=== PATIENT | female | born 1945 | race African-American/Black ===

== ENCOUNTER 2016-09-08 03:34 | Inpatient (IN) | payer MEDICARE ==
[~2016-09-08] VITALS: Ht 165.1 cm; Wt 66.7 kg
[2016-09-08] VITALS (10 sets, daily range): BP systolic 132–158; BP diastolic 80–93
[2016-09-08] MEDS ORDERED: ASPIRIN 81MG TABLET PO STA (03:39)
[2016-09-08 04:17] LABS: BASOPHILS % 0.3 % (0.0-2.0); EOSINOPHILS % 2.8 % (0.0-5.0); HEMATOCRIT. 39.5 % (36.0-48.0); HEMOGLOBIN. 13.1 g/dL (12.0-16.0); MEAN CORPUSCULAR HEMOGLOBIN 27.7 pg (28.0-32.0); MEAN CORPUSCULAR VOLUME 83.9 fL (81.0-99.0); MEAN PLATELET VOLUME 8.1 fl (7.4-10.4); NEUTROPHILS % 66.9 % (40.0-76.0); PLATELET 182 x1000/uL (130-400); RED BLOOD CELL COUNT 4.71 mill/uL (4.2-5.4); RED CELL DISTRIBUTION WIDTH 16.1 % (11.6-14.6)
[2016-09-08 04:25] LABS: D-DIMER 2.01 mg/L FEU (<0.50); INR 1.4; PARTIAL THROMBOPLASTIN TIME 39.8 sec (24.0-34.0)
[2016-09-08 04:31] LABS: CARBON DIOXIDE 24 mEq/L (21-32); CHLORIDE 105 mEq/L (98-107); CREATINE KINASE 54 IU/L (26-192); TROPONIN I 0.05 ng/mL (0.00-0.04)
[2016-09-08 04:34] LABS: BG BASE EXCESS -3.3 mmol/L (-2.0-2.0); BG BILEVEL POS AIRWAY PRESSURE 18/5; BG CARBOXYHEMOGLOBIN 0.9 % (0.5-1.5); BG DEOXYHEMOGLOBIN 0.2 % (0.0-5.0); BG FRACTION INSPIRED OXYGEN 100; BG HCO3 ACT 20.5 mmol/L (22.0-26.0); BG METHEMOGLOBIN 0.4 % (0.0-1.5); BG OXYGEN SATURATION 99.8 % (92.0-98.5); BG OXYHEMOGLOBIN 98.5 % (94.0-97.0); BG PCO2 33.6 mmHg (35.0-45.0); BG PH 7.403 (7.350-7.450); BG PO2 388.1 mmHg (75.0-100.0); BG SAMPLE SITE RIGHT RADIAL; BG TOTAL HEMOGLOBIN 15.9 g/dL (12.0-18.0); BG VENT MODE MASK - BIPAP; BG VENT RATE 18 set
[2016-09-08] MEDS ORDERED: LEVOFLOXACIN 750MG PREMIX 150 ML IV ONE (04:45)
[2016-09-08] MEDS ORDERED: FUROSEMIDE 40MG/4ML VIAL IVP ONE (04:45)
[2016-09-08 06:04] LABS: T4 FREE 1.76 ng/dL (0.76-1.46)
[2016-09-08] MEDS ORDERED: CLONIDINE 0.1MG TABLET PO PRN (09:45)
[2016-09-08] MEDS ORDERED: MAGNESIUM/ALUMINUM HYDROXIDE/SIMETHICONE 30ML UDC PO PRN (09:45)
[2016-09-08] MEDS ORDERED: IPRATROPIUM/ALBUTEROL 0.5-3(2.5)MG/3ML NEB INH PRN (09:45)
[2016-09-08] MEDS ORDERED: ONDANSETRON HCL 4MG/2ML VIAL IV PRN (09:45)
[2016-09-08] MEDS ORDERED: NA PHOS,M-B/NA PHOS,DI-BA ENEMA 118ML PR PRN (09:45)
[2016-09-08] MEDS ORDERED: DIPHENHYDRAMINE 50MG/ML VIAL IV PRN (09:45)
[2016-09-08] MEDS ORDERED: TRAMADOL 50MG TABLET PO PRN (09:45)
[2016-09-08] MEDS ORDERED: AMLODIPINE 10MG TABLET PO SCH (09:45)
[2016-09-08] MEDS ORDERED: GUAIFENESIN 200MG/10ML SUGAR FREE UDC PO PRN (09:45)
[2016-09-08] MEDS ORDERED: ASPIRIN 81MG TABLET PO NR (10:15)
[2016-09-08 10:16] LABS: *AMPHETAMINES SCREEN URINE NEGATIVE (NEGATIVE); *BARBITURATES SCREEN URINE NEGATIVE (NEGATIVE); *BENZODIAZEPINES SCREEN URINE PRESUMTIVE POSITIVE (NEGATIVE); *COCAINE SCREEN URINE NEGATIVE (NEGATIVE); CANNABINOID URINE SCREEN NEGATIVE (NEGATIVE); METHADONE URINE SCREEN NEGATIVE (NEGATIVE); OPIATES URINE SCREEN NEGATIVE (NEGATIVE); PHENCYCLIDINE URINE SCREEN NEGATIVE (NEGATIVE)
[2016-09-08] MEDS: PANTOPRAZOLE SODIUM 40 MG/VIAL IV SCH (10:24)
[2016-09-08] MEDS: ENOXAPARIN 30MG/0.3ML SYR SUBCUT SCH (10:24)
[2016-09-08] MEDS: LORAZEPAM 2MG/ML CPJ IV PRN (10:24)
[2016-09-08] MEDS: ASPIRIN 325MG EC TABLET PO SCH (10:24)
[2016-09-08] MEDS: FOLIC ACID/VITAMIN B COMP W-C TABLET PO SCH (10:25)
[2016-09-08] MEDS: AMLODIPINE 5MG TABLET PO SCH (10:30)
[2016-09-08] MEDS: ANASTROZOLE 1 MG TABLET PO SCH (10:30)
[2016-09-08] MEDS: SEVELAMER CARBONATE 800 MG TABLET PO SCH ×2 (12:32→17:04)
[2016-09-08] MEDS ORDERED: HEPARIN 100 UNITS/1 ML VIAL IVF PRN (15:00)
[2016-09-08] MEDS ORDERED: HEPARIN SODIUM 1,000 UNIT/1ML VIAL IV PRN ×2 (15:30→16:08)
[2016-09-08 15:54] LABS: CREATINE KINASE MB FRACTION 2.5 ng/mL (0.5-3.6); TROPONIN I 0.26 ng/mL (0.00-0.04)
[2016-09-08] MEDS: METHIMAZOLE 5MG TABLET PO SCH (16:00)
[2016-09-08] MEDS ORDERED: HEPARIN SODIUM 1,000 UNIT/1ML VIAL IV NR ×2 (16:30→17:30)
[2016-09-08] MEDS: ALPRAZOLAM 0.5 MG TABLET PO SCH (17:04)
[2016-09-08] MEDS ORDERED: ZOLPIDEM TARTRATE 5MG TABLET PO PRN (21:00)
[2016-09-08] MEDS ORDERED: METOPROLOL TARTRATE 25MG TABLET PO SCH (21:00)
[2016-09-08] MEDS: CARVEDILOL 3.125 MG TABLET PO SCH (21:25)
[2016-09-08] MEDS: HYDRALAZINE HCL 50MG TABLET PO SCH (21:26)
[2016-09-08 23:53] LABS: CREATINE KINASE MB FRACTION 1.8 ng/mL (0.5-3.6); TROPONIN I 0.2 ng/mL (0.00-0.04)
[2016-09-09] VITALS (32 sets, daily range): BP systolic 106–154; BP diastolic 40–105
[2016-09-09] MEDS: IPRATROPIUM/ALBUTEROL 0.5-3(2.5)MG/3ML NEB HHN SCH ×6 (00:42→21:39)
[2016-09-09] MEDS: LORAZEPAM 2MG/ML CPJ IV PRN (02:00)
[2016-09-09] MEDS: METHIMAZOLE 5MG TABLET PO SCH (08:35)
[2016-09-09] MEDS: FOLIC ACID/VITAMIN B COMP W-C TABLET PO SCH (08:35)
[2016-09-09] MEDS: SEVELAMER CARBONATE 800 MG TABLET PO SCH ×3 (08:35→18:07)
[2016-09-09] MEDS: PANTOPRAZOLE SODIUM 40 MG/VIAL IV SCH (08:35)
[2016-09-09] MEDS: ISOSORBIDE MONONITRATE 30MG TABLET SR 24HR PO SCH (08:36)
[2016-09-09] MEDS: HYDRALAZINE HCL 50MG TABLET PO SCH ×2 (08:36→22:14)
[2016-09-09] MEDS: AMLODIPINE 5MG TABLET PO SCH (08:36)
[2016-09-09] MEDS: ALPRAZOLAM 0.5 MG TABLET PO SCH ×2 (08:36→18:07)
[2016-09-09] MEDS: ASPIRIN 325MG EC TABLET PO SCH (08:39)
[2016-09-09] MEDS: CARVEDILOL 3.125 MG TABLET PO SCH ×2 (08:39→22:14)
[2016-09-09] MEDS: ENOXAPARIN 30MG/0.3ML SYR SUBCUT SCH (11:21)
[2016-09-09] MEDS: ANASTROZOLE 1 MG TABLET PO SCH (16:38)
[2016-09-09] MEDS: DOCUSATE SODIUM 100MG CAPSULE PO PRN (22:14)
[2016-09-10] VITALS (11 sets, daily range): BP systolic 107–180; BP diastolic 58–96
[2016-09-10] MEDS: IPRATROPIUM/ALBUTEROL 0.5-3(2.5)MG/3ML NEB HHN SCH ×5 (00:21→20:04)
[2016-09-10] MEDS: LORAZEPAM 2MG/ML CPJ IV PRN (00:41)
[2016-09-10] MEDS ORDERED: LEVOFLOXACIN 250MG PREMIX 50 ML IV SCH (05:00)
[2016-09-10] MEDS: ASPIRIN 325MG EC TABLET PO SCH (08:39)
[2016-09-10] MEDS: ANASTROZOLE 1 MG TABLET PO SCH (08:39)
[2016-09-10] MEDS: METHIMAZOLE 5MG TABLET PO SCH (08:39)
[2016-09-10] MEDS: FOLIC ACID/VITAMIN B COMP W-C TABLET PO SCH (08:39)
[2016-09-10] MEDS: SEVELAMER CARBONATE 800 MG TABLET PO SCH ×3 (08:41→18:03)
[2016-09-10] MEDS: FAMOTIDINE 20MG/2ML VIAL IV SCH (08:41)
[2016-09-10] MEDS: ALPRAZOLAM 0.5 MG TABLET PO SCH ×2 (08:42→18:43)
[2016-09-10] MEDS: DOCUSATE SODIUM 100MG CAPSULE PO PRN ×2 (08:45→21:35)
[2016-09-10] MEDS: CARVEDILOL 3.125 MG TABLET PO SCH ×2 (08:46→21:28)
[2016-09-10] MEDS: HYDRALAZINE HCL 50MG TABLET PO SCH ×2 (08:48→21:27)
[2016-09-10] MEDS: ISOSORBIDE MONONITRATE 30MG TABLET SR 24HR PO SCH (08:51)
[2016-09-10] MEDS: AMLODIPINE 5MG TABLET PO SCH (08:52)
[2016-09-10] MEDS ORDERED: LORAZEPAM 2MG/ML CPJ IV PRN (09:45)
[2016-09-10] MEDS: ENOXAPARIN 30MG/0.3ML SYR SUBCUT SCH (10:00)
[2016-09-10 10:01] LABS: BASOPHILS % 0.3 % (0.0-2.0); EOSINOPHILS % 5.3 % (0.0-5.0); HEMATOCRIT. 35.8 % (36.0-48.0); HEMOGLOBIN. 11.9 g/dL (12.0-16.0); LYMPHOCYTES % 19.8 % (20.0-50.0); MEAN PLATELET VOLUME 8.3 fl (7.4-10.4); MONOCYTES % 8.1 % (2.0-8.0); NEUTROPHILS % 66.5 % (40.0-76.0); PLATELET 166 x1000/uL (130-400); RED BLOOD CELL COUNT 4.26 mill/uL (4.2-5.4); RED CELL DISTRIBUTION WIDTH 16.2 % (11.6-14.6)
[2016-09-10 10:18] LABS: PHOSPHORUS 4.8 mg/dL (2.5-4.9)
[2016-09-10 10:45] LABS: BG BASE EXCESS -5.3 mmol/L (-2.0-2.0); BG CARBOXYHEMOGLOBIN 0.1 % (0.5-1.5); BG DEOXYHEMOGLOBIN 5.5 % (0.0-5.0); BG FRACTION INSPIRED OXYGEN 21; BG HCO3 ACT 18.4 mmol/L (22.0-26.0); BG METHEMOGLOBIN 0.3 % (0.0-1.5); BG OXYGEN SATURATION 94.5 % (92.0-98.5); BG OXYHEMOGLOBIN 94.1 % (94.0-97.0); BG PCO2 30.7 mmHg (35.0-45.0); BG PH 7.396 (7.350-7.450); BG PO2 78.3 mmHg (75.0-100.0); BG SAMPLE SITE RIGHT RADIAL; BG TOTAL HEMOGLOBIN 12.6 g/dL (12.0-18.0); BG VENT MODE ROOM AIR
[2016-09-10] MEDS: ACETAMINOPHEN 325MG TABLET PO PRN (12:25)
[2016-09-10] MEDS ORDERED: HEPARIN SODIUM 1,000 UNIT/1ML VIAL IV NR (15:30)
[2016-09-11] VITALS (11 sets, daily range): BP systolic 131–166; BP diastolic 68–100
[2016-09-11] MEDS: IPRATROPIUM/ALBUTEROL 0.5-3(2.5)MG/3ML NEB HHN SCH ×6 (00:07→20:24)
[2016-09-11] MEDS: ACETAMINOPHEN 325MG TABLET PO PRN (00:57)
[2016-09-11] MEDS: ANASTROZOLE 1 MG TABLET PO SCH (10:44)
[2016-09-11] MEDS: DOCUSATE SODIUM 100MG CAPSULE PO PRN (10:45)
[2016-09-11] MEDS: SEVELAMER CARBONATE 800 MG TABLET PO SCH ×3 (10:45→19:03)
[2016-09-11] MEDS: HYDRALAZINE HCL 50MG TABLET PO SCH ×2 (10:45→21:15)
[2016-09-11] MEDS: METHIMAZOLE 5MG TABLET PO SCH (10:46)
[2016-09-11] MEDS: ALPRAZOLAM 0.5 MG TABLET PO SCH ×2 (10:46→21:16)
[2016-09-11] MEDS: FOLIC ACID/VITAMIN B COMP W-C TABLET PO SCH (10:46)
[2016-09-11] MEDS: CARVEDILOL 3.125 MG TABLET PO SCH ×2 (10:47→21:16)
[2016-09-11] MEDS: AMLODIPINE 5MG TABLET PO SCH (10:48)
[2016-09-11] MEDS: ISOSORBIDE MONONITRATE 30MG TABLET SR 24HR PO SCH (10:48)
[2016-09-11] MEDS: ASPIRIN 325MG EC TABLET PO SCH (10:48)
[2016-09-11] MEDS: FAMOTIDINE 20MG/2ML VIAL IV SCH (10:49)
[2016-09-11] MEDS: ENOXAPARIN 30MG/0.3ML SYR SUBCUT SCH (10:50)
[2016-09-12] VITALS (13 sets, daily range): BP systolic 120–148; BP diastolic 48–96
[2016-09-12] MEDS: IPRATROPIUM/ALBUTEROL 0.5-3(2.5)MG/3ML NEB HHN SCH ×6 (00:15→21:26)
[2016-09-12] MEDS: ISOSORBIDE MONONITRATE 30MG TABLET SR 24HR PO SCH (08:43)
[2016-09-12] MEDS: CARVEDILOL 3.125 MG TABLET PO SCH ×2 (08:43→20:39)
[2016-09-12] MEDS: HYDRALAZINE HCL 50MG TABLET PO SCH ×2 (08:43→20:39)
[2016-09-12] MEDS: AMLODIPINE 5MG TABLET PO SCH (08:44)
[2016-09-12] MEDS: SEVELAMER CARBONATE 800 MG TABLET PO SCH ×3 (09:35→18:51)
[2016-09-12] MEDS: METHIMAZOLE 5MG TABLET PO SCH (09:36)
[2016-09-12] MEDS: FAMOTIDINE 20MG/2ML VIAL IV SCH (09:36)
[2016-09-12] MEDS: FOLIC ACID/VITAMIN B COMP W-C TABLET PO SCH (09:36)
[2016-09-12] MEDS: ALPRAZOLAM 0.5 MG TABLET PO SCH ×2 (09:36→16:40)
[2016-09-12] MEDS: ASPIRIN 325MG EC TABLET PO SCH (09:36)
[2016-09-12] MEDS: ENOXAPARIN 30MG/0.3ML SYR SUBCUT SCH (09:36)
[2016-09-12] MEDS ORDERED: LEVOFLOXACIN 250MG TABLET PO SCH (11:00)
[2016-09-12] MEDS: ANASTROZOLE 1 MG TABLET PO SCH (12:14)
[2016-09-12] MEDS ORDERED: HEPARIN SODIUM 1,000 UNIT/1ML VIAL IV NR (13:00)
[2016-09-13] VITALS: BP 139/93
[2016-09-13] MEDS: IPRATROPIUM/ALBUTEROL 0.5-3(2.5)MG/3ML NEB HHN SCH ×3 (00:19→09:31)
[2016-09-13 01:30] VITALS: BP 127/83
[2016-09-13 04:00] VITALS: BP 142/78
[2016-09-13 08:00] VITALS: BP 135/84
[2016-09-13] MEDS: FOLIC ACID/VITAMIN B COMP W-C TABLET PO SCH (08:42)
[2016-09-13] MEDS: ASPIRIN 325MG EC TABLET PO SCH (08:43)
[2016-09-13] MEDS: METHIMAZOLE 5MG TABLET PO SCH (08:43)
[2016-09-13] MEDS: ALPRAZOLAM 0.5 MG TABLET PO SCH (08:43)
[2016-09-13] MEDS: AMLODIPINE 5MG TABLET PO SCH (08:43)
[2016-09-13] MEDS: CARVEDILOL 3.125 MG TABLET PO SCH (08:44)
[2016-09-13] MEDS: ISOSORBIDE MONONITRATE 30MG TABLET SR 24HR PO SCH (08:44)
[2016-09-13] MEDS: ANASTROZOLE 1 MG TABLET PO SCH (08:45)
[2016-09-13] MEDS: FAMOTIDINE 20MG/2ML VIAL IV SCH (08:45)
[2016-09-13] MEDS: HYDRALAZINE HCL 50MG TABLET PO SCH (08:45)
[2016-09-13] MEDS: SEVELAMER CARBONATE 800 MG TABLET PO SCH (08:55)
[2016-09-13] MEDS: ENOXAPARIN 30MG/0.3ML SYR SUBCUT SCH (09:00)
[2016-09-13 11:30] VITALS: BP 115/56
[2016-09-13 12:00] VITALS: BP 115/56
== END 2016-09-13 12:38 | disposition home or self-care (01) | DRG 871 ==
LOC: ER 03:34 → EDBD 03:34 → EDBEDREQ 03:52 → 5EST 05:07 → EDBEDREQ 05:10 → EDBEDREQTM 05:10 → ENRESERV 06:12 → 5EST 09-11 06:15 → 7WST 09-13 02:26
PROVIDERS: ADMIT Internal Medicine; ATTEND Internal Medicine
PROC: 5A1D60Z (ICD-10-PCS; principal; 2016-09-08)
PROC: 5A09357 Assistance with Respiratory Ventilation, Less than 24 Consecutive Hours, Continuous Positive Airway Pressure (ICD-10-PCS; 2016-09-08)
DX: A41.9 Sepsis, unspecified organism (principal); N18.6 End stage renal disease; J96.00 Acute respiratory failure, unspecified whether with hypoxia or hypercapnia; J18.1 Lobar pneumonia, unspecified organism; I50.43 Acute on chronic combined systolic (congestive) and diastolic (congestive) heart failure; I13.2 Hypertensive heart and chronic kidney disease with heart failure and with stage 5 chronic kidney disease, or end stage renal disease; J44.0 Chronic obstructive pulmonary disease with (acute) lower respiratory infection; J44.1 Chronic obstructive pulmonary disease with (acute) exacerbation; E05.90 Thyrotoxicosis, unspecified without thyrotoxic crisis or storm; E11.22 Type 2 diabetes mellitus with diabetic chronic kidney disease; I25.10 Atherosclerotic heart disease of native coronary artery without angina pectoris; I25.2 Old myocardial infarction; I27.2 Other secondary pulmonary hypertension; Z79.899 Other long term (current) drug therapy; Z87.891 Personal history of nicotine dependence; Z99.2 Dependence on renal dialysis; G89.29 Other chronic pain; M54.5 Low back pain; M19.90 Unspecified osteoarthritis, unspecified site; Z88.6 Allergy status to analgesic agent; Z88.8 Allergy status to other drugs, medicaments and biological substances; C50.912 Malignant neoplasm of unspecified site of left female breast; R26.9 Unspecified abnormalities of gait and mobility
CPT/HCPCS: 36415; 36600; 71010; 71100; 80048; 80053; 80305; 82375; 82550; 82553; 82805; 82962; 83036; 83605; 83690; 83880; 84100; 84439; 84443; 84481; 84484; 85025; 85379; 85610; 85730; 86300; 87040; 87070; 93005; 93306; 93970; 94640; 94660; 96365; 96375; 97116; 97162; 97166; 97530; 97535; 99291; C9113; J1644; J1650; J1940; J1956; J2060; J3490; J7030; J7040; J7620

== ENCOUNTER 2016-09-29 16:41 | Inpatient (IN) | payer MEDICARE ==
[~2016-09-29] VITALS: Ht 167.6 cm; Wt 69.9 kg
[2016-09-29] MEDS ORDERED: ASPIRIN 81MG TABLET PO ONE (18:45)
[2016-09-29] MEDS ORDERED: NITROGLYCERIN 0.4MG TABLET SL SL PRN ×2 (18:45→20:30)
[2016-09-29 19:33] LABS: BASOPHILS % 0.3 % (0.0-2.0); EOSINOPHILS % 1.2 % (0.0-5.0); HEMATOCRIT. 34.3 % (36.0-48.0); HEMOGLOBIN. 11.5 g/dL (12.0-16.0); LYMPHOCYTES % 14.9 % (20.0-50.0); MEAN CORPUSCULAR HEMOGLOBIN 28.2 pg (28.0-32.0); MEAN CORPUSCULAR VOLUME 84.4 fL (81.0-99.0); MEAN PLATELET VOLUME 8.4 fl (7.4-10.4); MONOCYTES % 9.2 % (2.0-8.0); NEUTROPHILS % 74.4 % (40.0-76.0); PLATELET 229 x1000/uL (130-400); RED BLOOD CELL COUNT 4.06 mill/uL (4.2-5.4); RED CELL DISTRIBUTION WIDTH 16.5 % (11.6-14.6)
[2016-09-29 19:41] LABS: INR 1.4
[2016-09-29 19:49] LABS: CARBON DIOXIDE 23 mEq/L (21-32); CHLORIDE 104 mEq/L (98-107); TROPONIN I 0.03 ng/mL (0.00-0.04)
[2016-09-29] MEDS ORDERED: ALBUTEROL (0.5%) 2.5MG/0.5ML NEB HHN ONE (20:00)
[2016-09-29] MEDS ORDERED: GUAIFENESIN 200MG/10ML SUGAR FREE UDC PO PRN (20:30)
[2016-09-29] MEDS ORDERED: DEXTROSE 50% WATER 50ML SYRINGE IV PRN (20:30)
[2016-09-29] MEDS ORDERED: CLONIDINE 0.1MG TABLET PO PRN (20:30)
[2016-09-29] MEDS ORDERED: DIPHENHYDRAMINE 50MG/ML VIAL IV PRN (20:30)
[2016-09-29] MEDS ORDERED: NA PHOS,M-B/NA PHOS,DI-BA ENEMA 118ML PR PRN (20:30)
[2016-09-29] MEDS ORDERED: ZOLPIDEM TARTRATE 5MG TABLET PO PRN (20:30)
[2016-09-29] MEDS ORDERED: MAGNESIUM/ALUMINUM HYDROXIDE/SIMETHICONE 30ML UDC PO PRN (20:30)
[2016-09-29] MEDS ORDERED: DOCUSATE SODIUM 100MG CAPSULE PO PRN (20:30)
[2016-09-29] MEDS ORDERED: ENOXAPARIN 40MG/0.4ML SYR SUBCUT SCH (20:30)
[2016-09-29] MEDS ORDERED: TRAMADOL 50MG TABLET PO PRN (20:30)
[2016-09-29] MEDS ORDERED: FAMOTIDINE 20MG TABLET PO SCH (21:00)
[2016-09-29] MEDS ORDERED: ONDANSETRON HCL 4MG/2ML VIAL IV PRN (21:33)
[2016-09-29 23:07] LABS: CREATINE KINASE MB FRACTION 0.7 ng/mL (0.5-3.6); TROPONIN I 0.04 ng/mL (0.00-0.04)
[2016-09-29] MEDS: INSULIN LISPRO 100 UNITS/ML SUBCUT SCH (23:50)
[2016-09-29] MEDS: BLOOD SUGAR DIAGNOSTIC STRIP TEST SCH (23:50)
[2016-09-29] MEDS: HYDRALAZINE HCL 50MG TABLET PO SCH (23:57)
[2016-09-29] MEDS: METOPROLOL TARTRATE 25MG TABLET PO SCH (23:57)
[2016-09-30] VITALS (7 sets, daily range): BP systolic 129–156; BP diastolic 75–89
[2016-09-30] MEDS ORDERED: NEPVIT PO (00:32)
[2016-09-30] MEDS ORDERED: ISOS30TA6 PO (00:32)
[2016-09-30] MEDS ORDERED: HYDR-4135 PO (00:32)
[2016-09-30] MEDS ORDERED: SEVE800T8 PO (00:32)
[2016-09-30] MEDS ORDERED: ASPI-1159 PO (00:32)
[2016-09-30] MEDS ORDERED: ANAS1TAB7 PO (00:32)
[2016-09-30] MEDS ORDERED: [UNRECOGNIZED DRUG - OTHER] (00:32)
[2016-09-30] MEDS ORDERED: FAMO20TA8 PO (00:32)
[2016-09-30] MEDS ORDERED: CARV3.1242 PO (00:32)
[2016-09-30] MEDS ORDERED: TIOT18CA3 INH (00:32)
[2016-09-30] MEDS ORDERED: AMLO5TAB4 PO (00:32)
[2016-09-30] MEDS: LORAZEPAM 2MG/ML CPJ IV PRN ×2 (00:57→09:31)
[2016-09-30] MEDS: HYDRALAZINE HCL 50MG TABLET PO SCH ×3 (06:00→21:56)
[2016-09-30] MEDS: BLOOD SUGAR DIAGNOSTIC STRIP TEST SCH ×4 (06:26→21:26)
[2016-09-30 06:33] LABS: CREATINE KINASE 34 IU/L (26-192); CREATINE KINASE MB FRACTION < 0.5 ng/mL (0.5-3.6); TROPONIN I 0.04 ng/mL (0.00-0.04)
[2016-09-30] MEDS: INSULIN LISPRO 100 UNITS/ML SUBCUT SCH ×4 (07:50→21:00)
[2016-09-30] MEDS: GUAIFENESIN/DM 600MG/30MG ER TAB 12HR PO SCH ×2 (09:19→22:48)
[2016-09-30] MEDS: SEVELAMER CARBONATE 800 MG TABLET PO SCH ×3 (09:19→18:05)
[2016-09-30] MEDS: FAMOTIDINE 20MG TABLET PO SCH (09:20)
[2016-09-30] MEDS: FOLIC ACID/VITAMIN B COMP W-C TABLET PO SCH (09:20)
[2016-09-30] MEDS: ASPIRIN 325MG EC TABLET PO SCH (09:20)
[2016-09-30] MEDS: METOPROLOL TARTRATE 25MG TABLET PO SCH ×2 (09:21→21:56)
[2016-09-30] MEDS: ENOXAPARIN 30MG/0.3ML SYR SUBCUT SCH (09:22)
[2016-09-30 15:25] LABS: BASOPHILS % 0.4 % (0.0-2.0); EOSINOPHILS % 2.7 % (0.0-5.0); HEMATOCRIT. 34.3 % (36.0-48.0); HEMOGLOBIN. 11.7 g/dL (12.0-16.0); LYMPHOCYTES % 15.4 % (20.0-50.0); MEAN CORPUSCULAR HEMOGLOBIN 28.8 pg (28.0-32.0); MEAN CORPUSCULAR VOLUME 84.4 fL (81.0-99.0); MEAN PLATELET VOLUME 7.9 fl (7.4-10.4); MONOCYTES % 8.2 % (2.0-8.0); NEUTROPHILS % 73.3 % (40.0-76.0); PLATELET 225 x1000/uL (130-400); RED BLOOD CELL COUNT 4.07 mill/uL (4.2-5.4); RED CELL DISTRIBUTION WIDTH 16.1 % (11.6-14.6)
[2016-09-30 15:41] LABS: CARBON DIOXIDE 22 mEq/L (21-32); CHLORIDE 99 mEq/L (98-107)
[2016-09-30] MEDS: IPRATROPIUM/ALBUTEROL 0.5-3(2.5)MG/3ML NEB INH PRN (20:04)
[2016-10-01] MEDS: IPRATROPIUM/ALBUTEROL 0.5-3(2.5)MG/3ML NEB INH PRN ×2 (00:19→04:11)
[2016-10-01 01:14] VITALS: BP 144/81
[2016-10-01] MEDS: LORAZEPAM 2MG/ML CPJ IV PRN ×3 (01:28→22:57)
[2016-10-01] MEDS: HYDRALAZINE HCL 50MG TABLET PO SCH ×3 (05:59→21:42)
[2016-10-01 06:15] VITALS: BP 115/62
[2016-10-01] MEDS: BLOOD SUGAR DIAGNOSTIC STRIP TEST SCH ×4 (06:24→21:00)
[2016-10-01] MEDS: INSULIN LISPRO 100 UNITS/ML SUBCUT SCH ×4 (07:48→21:00)
[2016-10-01 08:00] VITALS: BP 138/75
[2016-10-01] MEDS: FAMOTIDINE 20MG TABLET PO SCH (08:19)
[2016-10-01] MEDS: FOLIC ACID/VITAMIN B COMP W-C TABLET PO SCH (08:20)
[2016-10-01] MEDS: ACETAMINOPHEN 325MG TABLET PO PRN ×2 (08:20→20:33)
[2016-10-01] MEDS: SEVELAMER CARBONATE 800 MG TABLET PO SCH ×3 (08:20→17:16)
[2016-10-01] MEDS: GUAIFENESIN/DM 600MG/30MG ER TAB 12HR PO SCH ×2 (08:20→21:40)
[2016-10-01] MEDS: ASPIRIN 325MG EC TABLET PO SCH (08:20)
[2016-10-01] MEDS: METOPROLOL TARTRATE 25MG TABLET PO SCH ×2 (08:21→21:40)
[2016-10-01] MEDS: ENOXAPARIN 30MG/0.3ML SYR SUBCUT SCH (08:22)
[2016-10-01 12:00] VITALS: BP 113/66
[2016-10-01 16:00] VITALS: BP 114/81
[2016-10-01 20:00] VITALS: BP 134/71
[2016-10-02] VITALS: BP 141/76
[2016-10-02 04:00] VITALS: BP 146/67
[2016-10-02] MEDS: HYDRALAZINE HCL 50MG TABLET PO SCH ×2 (06:00→14:00)
[2016-10-02 07:04] LABS: BASOPHILS % 0.5 % (0.0-2.0); EOSINOPHILS % 5.7 % (0.0-5.0); HEMATOCRIT. 33.4 % (36.0-48.0); HEMOGLOBIN. 11.3 g/dL (12.0-16.0); LYMPHOCYTES % 22.7 % (20.0-50.0); MEAN CORPUSCULAR HEMOGLOBIN 28.6 pg (28.0-32.0); MEAN CORPUSCULAR VOLUME 84.7 fL (81.0-99.0); MEAN PLATELET VOLUME 8.4 fl (7.4-10.4); MONOCYTES % 12.5 % (2.0-8.0); NEUTROPHILS % 58.6 % (40.0-76.0); PLATELET 233 x1000/uL (130-400); RED BLOOD CELL COUNT 3.94 mill/uL (4.2-5.4); RED CELL DISTRIBUTION WIDTH 16.6 % (11.6-14.6)
[2016-10-02] MEDS: BLOOD SUGAR DIAGNOSTIC STRIP TEST SCH ×3 (07:15→17:20)
[2016-10-02] MEDS: INSULIN LISPRO 100 UNITS/ML SUBCUT SCH ×3 (07:50→17:20)
[2016-10-02 08:00] VITALS: BP 133/79
[2016-10-02] MEDS: ASPIRIN 325MG EC TABLET PO SCH (08:47)
[2016-10-02] MEDS: FAMOTIDINE 20MG TABLET PO SCH (08:47)
[2016-10-02] MEDS: SEVELAMER CARBONATE 800 MG TABLET PO SCH ×3 (08:47→18:07)
[2016-10-02] MEDS: GUAIFENESIN/DM 600MG/30MG ER TAB 12HR PO SCH (08:47)
[2016-10-02] MEDS: FOLIC ACID/VITAMIN B COMP W-C TABLET PO SCH (08:47)
[2016-10-02] MEDS: ENOXAPARIN 30MG/0.3ML SYR SUBCUT SCH (08:49)
[2016-10-02] MEDS: METOPROLOL TARTRATE 25MG TABLET PO SCH (09:00)
[2016-10-02 12:00] VITALS: BP 135/77
[2016-10-02] MEDS: LORAZEPAM 2MG/ML CPJ IV PRN (12:41)
[2016-10-02 16:00] VITALS: BP 138/86
[2016-10-02] MEDS ORDERED: CELECOXIB 200MG CAPSULE PO SCH (17:00)
[2016-10-02] MEDS: ACETAMINOPHEN 325MG TABLET PO PRN (17:19)
[2016-10-02 17:29] VITALS: BP 138/86
== END 2016-10-02 19:05 | disposition home or self-care (01) | DRG 291 ==
LOC: ER 17:03 → SUPCPDRO 20:19 → 6WST 20:21 → ENRESERV 21:01
PROVIDERS: ADMIT Internal Medicine; ATTEND Internal Medicine
PROC: 5A1D60Z (ICD-10-PCS; principal; 2016-09-30)
DX: I13.2 Hypertensive heart and chronic kidney disease with heart failure and with stage 5 chronic kidney disease, or end stage renal disease (principal); I50.33 Acute on chronic diastolic (congestive) heart failure; J96.00 Acute respiratory failure, unspecified whether with hypoxia or hypercapnia; N18.6 End stage renal disease; E11.22 Type 2 diabetes mellitus with diabetic chronic kidney disease; D63.8 Anemia in other chronic diseases classified elsewhere; E03.9 Hypothyroidism, unspecified; E78.00 Pure hypercholesterolemia, unspecified; E78.5 Hyperlipidemia, unspecified; J44.9 Chronic obstructive pulmonary disease, unspecified; Z85.3 Personal history of malignant neoplasm of breast; Z91.11 Patient's noncompliance with dietary regimen; I25.2 Old myocardial infarction; Z91.14 Patient's other noncompliance with medication regimen; Z99.2 Dependence on renal dialysis; Z88.6 Allergy status to analgesic agent; Z88.8 Allergy status to other drugs, medicaments and biological substances; Z79.82 Long term (current) use of aspirin; Z79.899 Other long term (current) drug therapy
CPT/HCPCS: 36415; 71010; 80048; 80053; 80061; 82550; 82553; 82962; 83036; 83880; 84443; 84484; 85025; 85610; 93005; 94640; 96372; 97162; 99285; J1650; J2060; J7030; J7611; J7620

== ENCOUNTER 2016-10-09 23:04 | Inpatient (IN) | payer MEDICARE ==
[~2016-10-09] VITALS: Ht 160 cm; Wt 59.0 kg
[~2016-10-09 23:04] MED LIST: AMLO5TAB4 PO; ANAS1TAB7 PO; ASPI-1159 PO; CARV3.1242 PO; FAMO20TA8 PO; HYDR-4135 PO; ISOS30TA6 PO; NEPVIT PO; SEVE800T8 PO; TIOT18CA3 INH; [UNRECOGNIZED DRUG - OTHER]
[2016-10-09] MEDS ORDERED: NITROGLYCERIN OINT 1GM/INCH UDPKT TD STA (23:43)
[2016-10-09] MEDS ORDERED: ONDANSETRON HCL 4MG/2ML VIAL IV STA (23:43)
[2016-10-09] MEDS ORDERED: MORPHINE SULFATE 4 MG/ML CPJ (NOT FOR IM USE) IV STA (23:43)
[2016-10-09] MEDS ORDERED: DIPHENHYDRAMINE 50MG/ML VIAL IV ONE (23:45)
[2016-10-10] VITALS (7 sets, daily range): BP systolic 136–157; BP diastolic 73–92
[2016-10-10] MEDS ORDERED: LORAZEPAM 1MG TABLET PO ONE
[2016-10-10 00:16] LABS: BASOPHILS % 0.9 % (0.0-2.0); HEMATOCRIT. 32.9 % (36.0-48.0); HEMOGLOBIN. 11.1 g/dL (12.0-16.0); LYMPHOCYTES % 15.9 % (20.0-50.0); MEAN CORPUSCULAR HEMOGLOBIN 28.4 pg (28.0-32.0); MEAN CORPUSCULAR VOLUME 84.5 fL (81.0-99.0); MEAN PLATELET VOLUME 7.4 fl (7.4-10.4); MONOCYTES % 7.5 % (2.0-8.0); NEUTROPHILS % 73.7 % (40.0-76.0); PLATELET 215 x1000/uL (130-400); RED CELL DISTRIBUTION WIDTH 16.5 % (11.6-14.6)
[2016-10-10 00:31] LABS: TROPONIN I 0.03 ng/mL (0.00-0.04)
[2016-10-10] MEDS ORDERED: DEXTROSE 50% WATER 50ML SYRINGE IV PRN (04:00)
[2016-10-10] MEDS ORDERED: LORAZEPAM 0.5MG TABLET PO PRN (04:00)
[2016-10-10] MEDS ORDERED: IPRATROPIUM/ALBUTEROL 0.5-3(2.5)MG/3ML NEB INH PRN (04:00)
[2016-10-10] MEDS ORDERED: ACETAMINOPHEN 325MG TABLET PO PRN (04:00)
[2016-10-10] MEDS ORDERED: MAGNESIUM/ALUMINUM HYDROXIDE/SIMETHICONE 30ML UDC PO PRN (04:00)
[2016-10-10] MEDS ORDERED: ONDANSETRON HCL 4MG/2ML VIAL IV PRN (04:00)
[2016-10-10] MEDS ORDERED: METHIMAZOLE PO (06:15)
[2016-10-10] MEDS ORDERED: ALPR-392 PO (06:16)
[2016-10-10] MEDS: INSULIN LISPRO 100 UNITS/ML SUBCUT SCH ×4 (06:39→21:00)
[2016-10-10] MEDS: BLOOD SUGAR DIAGNOSTIC STRIP TEST SCH ×4 (06:39→21:00)
[2016-10-10] MEDS: SODIUM CHLORIDE 0.9% INJ 3ML FLUSH IVF SCH ×3 (06:40→22:00)
[2016-10-10] MEDS ORDERED: FOLIC ACID/VITAMIN B COMP W-C TABLET PO SCH ×2 (09:00)
[2016-10-10] MEDS ORDERED: FAMOTIDINE 20MG TABLET PO SCH (09:00)
[2016-10-10] MEDS ORDERED: FAMOTIDINE(NEO) 1MG/ML SUSP PO SCH (09:00)
[2016-10-10] MEDS: SEVELAMER CARBONATE 800 MG TABLET PO SCH ×3 (09:10→18:08)
[2016-10-10] MEDS: AMLODIPINE 5MG TABLET PO SCH (09:10)
[2016-10-10] MEDS: ASPIRIN 81MG EC TABLET PO SCH (09:11)
[2016-10-10] MEDS: CARVEDILOL 3.125 MG TABLET PO SCH ×2 (09:11→18:08)
[2016-10-10] MEDS: HYDRALAZINE HCL 50MG TABLET PO SCH ×2 (09:12→18:08)
[2016-10-10] MEDS: ISOSORBIDE MONONITRATE 30MG TABLET SR 24HR PO SCH (09:13)
[2016-10-10] MEDS ORDERED: LORAZEPAM 1MG TABLET PO PRN (12:30)
[2016-10-10] MEDS ORDERED: OMEPRAZOLE 20MG CAPSULE EXTENDED RELEASE PO SCH (17:20)
[2016-10-10] MEDS: ANASTROZOLE 1 MG TABLET PO SCH (18:08)
[2016-10-11 05:07] VITALS: BP 153/86
[2016-10-11 06:55] LABS: BASOPHILS % 0.6 % (0.0-2.0); EOSINOPHILS % 3.3 % (0.0-5.0); HEMATOCRIT. 33.7 % (36.0-48.0); HEMOGLOBIN. 11.3 g/dL (12.0-16.0); MEAN CORPUSCULAR HEMOGLOBIN 28.4 pg (28.0-32.0); MEAN CORPUSCULAR VOLUME 84.8 fL (81.0-99.0); MEAN PLATELET VOLUME 7.8 fl (7.4-10.4); NEUTROPHILS % 63.1 % (40.0-76.0); PLATELET 219 x1000/uL (130-400); RED BLOOD CELL COUNT 3.97 mill/uL (4.2-5.4); RED CELL DISTRIBUTION WIDTH 16.7 % (11.6-14.6)
[2016-10-11] MEDS: BLOOD SUGAR DIAGNOSTIC STRIP TEST SCH (07:03)
[2016-10-11] MEDS ORDERED: PANTOPRAZOLE 40MG DR TABLET PO SCH (07:20)
[2016-10-11] MEDS: INSULIN LISPRO 100 UNITS/ML SUBCUT SCH (07:50)
[2016-10-11 08:00] LABS: CARBON DIOXIDE 25 mEq/L (21-32); CHLORIDE 103 mEq/L (98-107)
[2016-10-11 08:15] LABS: T4 FREE 1.42 ng/dL (0.76-1.46)
[2016-10-11 08:35] VITALS: BP 149/86
[2016-10-11] MEDS: AMLODIPINE 5MG TABLET PO SCH (08:36)
[2016-10-11] MEDS: ISOSORBIDE MONONITRATE 30MG TABLET SR 24HR PO SCH (08:37)
[2016-10-11] MEDS: ASPIRIN 81MG EC TABLET PO SCH (08:38)
[2016-10-11] MEDS: ANASTROZOLE 1 MG TABLET PO SCH (08:38)
[2016-10-11] MEDS: HYDRALAZINE HCL 50MG TABLET PO SCH (08:38)
[2016-10-11] MEDS: CARVEDILOL 3.125 MG TABLET PO SCH (08:38)
[2016-10-11] MEDS: SEVELAMER CARBONATE 800 MG TABLET PO SCH (08:39)
[2016-10-11] MEDS ORDERED: FOLIC ACID/VITAMIN B COMP W-C TABLET PO SCH (09:00)
[2016-10-11 10:48] VITALS: BP 149/86
[2016-10-11 12:19] VITALS: BP 148/87
== END 2016-10-11 12:30 | disposition home or self-care (01) | DRG 391 ==
LOC: ER 23:16 → 6WST 10-10 02:11 → EDBEDREQ 10-10 02:19 → ENRESERV 10-10 02:37
PROVIDERS: ADMIT Internal Medicine; ATTEND Internal Medicine
PROC: 5A1D00Z (ICD-10-PCS; principal; 2016-10-10)
DX: K21.9 Gastro-esophageal reflux disease without esophagitis (principal); N18.6 End stage renal disease; I13.2 Hypertensive heart and chronic kidney disease with heart failure and with stage 5 chronic kidney disease, or end stage renal disease; I42.9 Cardiomyopathy, unspecified; E11.22 Type 2 diabetes mellitus with diabetic chronic kidney disease; I27.2 Other secondary pulmonary hypertension; I50.32 Chronic diastolic (congestive) heart failure; D63.1 Anemia in chronic kidney disease; E78.00 Pure hypercholesterolemia, unspecified; F41.1 Generalized anxiety disorder; I25.10 Atherosclerotic heart disease of native coronary artery without angina pectoris; E05.90 Thyrotoxicosis, unspecified without thyrotoxic crisis or storm; I34.0 Nonrheumatic mitral (valve) insufficiency; J44.9 Chronic obstructive pulmonary disease, unspecified; Z82.49 Family history of ischemic heart disease and other diseases of the circulatory system; Z85.3 Personal history of malignant neoplasm of breast; Z87.11 Personal history of peptic ulcer disease; Z99.2 Dependence on renal dialysis; I25.2 Old myocardial infarction; Z88.4 Allergy status to anesthetic agent; Z88.8 Allergy status to other drugs, medicaments and biological substances; Z79.82 Long term (current) use of aspirin; Z79.899 Other long term (current) drug therapy
CPT/HCPCS: 36415; 71010; 80048; 82962; 83735; 84439; 84443; 84481; 84484; 85025; 93005; 99285; J1200; J2270; J2405; J7030

== ENCOUNTER 2016-10-29 07:02 | Inpatient (IN) | payer MEDICARE, MEDICAID ==
[~2016-10-29] VITALS: Ht 157.5 cm; Wt 68.5 kg
[~2016-10-29 07:02] MED LIST changes: +ALPR-392 PO; +METHIMAZOLE PO; -[UNRECOGNIZED DRUG - OTHER]
[2016-10-29] MEDS ORDERED: ALBUTEROL (0.083%) 2.5MG/3ML NEB HHN STA (09:00)
[2016-10-29 09:35] LABS: BG BASE EXCESS -2.5 mmol/L (-2.0-2.0); BG CARBOXYHEMOGLOBIN 0.8 % (0.5-1.5); BG DEOXYHEMOGLOBIN 17.3 % (0.0-5.0); BG FRACTION INSPIRED OXYGEN 60; BG HCO3 ACT 22.9 mmol/L (22.0-26.0); BG METHEMOGLOBIN 0.2 % (0.0-1.5); BG OXYGEN SATURATION 82.5 % (92.0-98.5); BG OXYHEMOGLOBIN 81.7 % (94.0-97.0); BG PH 7.355 (7.350-7.450); BG SAMPLE SITE RIGHT RADIAL; BG TOTAL HEMOGLOBIN 13.2 g/dL (12.0-18.0)
[2016-10-29 09:44] LABS: BASOPHILS % 0.7 % (0.0-2.0); EOSINOPHILS % 2.6 % (0.0-5.0); HEMATOCRIT. 37.1 % (36.0-48.0); HEMOGLOBIN. 12.2 g/dL (12.0-16.0); LYMPHOCYTES % 24.8 % (20.0-50.0); MEAN CORPUSCULAR HEMOGLOBIN 28.9 pg (28.0-32.0); MEAN CORPUSCULAR VOLUME 87.8 fL (81.0-99.0); MEAN PLATELET VOLUME 7.7 fl (7.4-10.4); MONOCYTES % 8.5 % (2.0-8.0); NEUTROPHILS % 63.4 % (40.0-76.0); PLATELET 249 x1000/uL (130-400); RED BLOOD CELL COUNT 4.23 mill/uL (4.2-5.4); RED CELL DISTRIBUTION WIDTH 17.9 % (11.6-14.6)
[2016-10-29 09:53] LABS: D-DIMER 2.5 mg/L FEU (<0.50); INR 1.5; PROTHROMBIN TIME 15.7 sec (9.4-11.6)
[2016-10-29 10:00] LABS: TROPONIN I 0.05 ng/mL (0.00-0.04)
[2016-10-29] MEDS ORDERED: ALBUTEROL (0.083%) 2.5MG/3ML NEB HHN ONE (11:00)
[2016-10-29 17:11] VITALS: BP 171/93
[2016-10-29 17:29] VITALS: BP 171/93
[2016-10-29] MEDS: CARVEDILOL 3.125 MG TABLET PO SCH (17:30)
[2016-10-29 18:00] VITALS: BP 157/85
[2016-10-29 20:00] VITALS: BP 157/95
[2016-10-29] MEDS: AMLODIPINE 5MG TABLET PO SCH (21:00)
[2016-10-29] MEDS: HYDRALAZINE HCL 50MG TABLET PO SCH (21:50)
[2016-10-29 22:00] VITALS: BP 143/87
[2016-10-29] MEDS ORDERED: MAGNESIUM HYDROXIDE 400MG/5ML 30ML UDC PO PRN (22:00)
[2016-10-29] MEDS ORDERED: MAGNESIUM/ALUMINUM HYDROXIDE/SIMETHICONE 30ML UDC PO PRN (22:00)
[2016-10-29] MEDS: LORAZEPAM 1MG TABLET PO PRN (23:56)
[2016-10-30] VITALS (12 sets, daily range): BP systolic 123–154; BP diastolic 0–89
[2016-10-30] MEDS ORDERED: HEPARIN SODIUM 1,000 UNIT/1ML VIAL IV ONE (00:15)
[2016-10-30] MEDS ORDERED: HEPARIN SODIUM 1,000 UNIT/1ML VIAL IV SCH ×3 (00:30→01:07)
[2016-10-30] MEDS: HYDRALAZINE HCL 50MG TABLET PO SCH ×3 (05:51→21:14)
[2016-10-30] MEDS: OMEPRAZOLE 20MG CAPSULE EXTENDED RELEASE PO SCH ×2 (05:55→17:31)
[2016-10-30 06:58] LABS: HEMATOCRIT. 36.6 % (36.0-48.0); HEMOGLOBIN. 12.2 g/dL (12.0-16.0); MEAN CORPUSCULAR HEMOGLOBIN 29.3 pg (28.0-32.0); MEAN CORPUSCULAR VOLUME 87.7 fL (81.0-99.0); PLATELET 200 x1000/uL (130-400); RED BLOOD CELL COUNT 4.17 mill/uL (4.2-5.4)
[2016-10-30 07:47] LABS: TROPONIN I 0.1 ng/mL (0.00-0.04)
[2016-10-30] MEDS: AMLODIPINE 5MG TABLET PO SCH ×2 (09:18→21:14)
[2016-10-30] MEDS: CARVEDILOL 3.125 MG TABLET PO SCH ×3 (09:19→21:14)
[2016-10-30] MEDS: ISOSORBIDE MONONITRATE 30MG TABLET SR 24HR PO SCH (09:19)
[2016-10-30] MEDS: ASPIRIN 81MG EC TABLET PO SCH (09:19)
[2016-10-30] MEDS: SEVELAMER CARBONATE 800 MG TABLET PO SCH ×3 (09:30→17:31)
[2016-10-30] MEDS ORDERED: IPRATROPIUM/ALBUTEROL 0.5-3(2.5)MG/3ML NEB HHN PRN (11:15)
[2016-10-30] MEDS: BUDESONIDE 0.5MG/2ML NEB HHN SCH ×2 (11:54→20:47)
[2016-10-30] MEDS: IPRATROPIUM/ALBUTEROL 0.5-3(2.5)MG/3ML NEB HHN SCH ×3 (11:55→20:47)
[2016-10-30 13:29] LABS: PLATELET ESTIMATE NORMAL
[2016-10-30] MEDS: LORAZEPAM 1MG TABLET PO PRN (14:19)
[2016-10-31] VITALS (12 sets, daily range): BP systolic 137–165; BP diastolic 74–92
[2016-10-31] MEDS: IPRATROPIUM/ALBUTEROL 0.5-3(2.5)MG/3ML NEB HHN SCH ×4 (01:19→19:58)
[2016-10-31] MEDS: HYDRALAZINE HCL 50MG TABLET PO SCH (06:03)
[2016-10-31] MEDS: OMEPRAZOLE 20MG CAPSULE EXTENDED RELEASE PO SCH (06:03)
[2016-10-31 06:54] LABS: BASOPHILS % 0.3 % (0.0-2.0); EOSINOPHILS % 1.6 % (0.0-5.0); HEMATOCRIT. 34.3 % (36.0-48.0); HEMOGLOBIN. 11.3 g/dL (12.0-16.0); LYMPHOCYTES % 19.8 % (20.0-50.0); MEAN CORPUSCULAR HEMOGLOBIN 29.2 pg (28.0-32.0); MEAN CORPUSCULAR VOLUME 88.4 fL (81.0-99.0); MONOCYTES % 10.5 % (2.0-8.0); NEUTROPHILS % 67.8 % (40.0-76.0); PLATELET 177 x1000/uL (130-400); RED BLOOD CELL COUNT 3.88 mill/uL (4.2-5.4); RED CELL DISTRIBUTION WIDTH 17.4 % (11.6-14.6)
[2016-10-31] MEDS: BUDESONIDE 0.5MG/2ML NEB HHN SCH ×2 (08:34→19:58)
[2016-10-31] MEDS ORDERED: LIDOCAINE HCL/PF 1% 2ML VIAL ONE (09:39)
[2016-10-31] MEDS: ISOSORBIDE MONONITRATE 30MG TABLET SR 24HR PO SCH (10:36)
[2016-10-31] MEDS: ASPIRIN 81MG EC TABLET PO SCH (10:37)
[2016-10-31] MEDS: CARVEDILOL 3.125 MG TABLET PO SCH (10:37)
[2016-10-31] MEDS: AMLODIPINE 5MG TABLET PO SCH ×2 (10:37→21:06)
[2016-10-31] MEDS: SEVELAMER CARBONATE 800 MG TABLET PO SCH ×2 (10:39→14:07)
[2016-10-31] MEDS: LORAZEPAM 1MG TABLET PO PRN (12:05)
[2016-10-31] MEDS: HYDRALAZINE HCL 100MG TABLET PO SCH ×2 (14:00→21:07)
[2016-10-31 15:25] LABS: BG BASE EXCESS -2.6 mmol/L (-2.0-2.0); BG CARBOXYHEMOGLOBIN 0.6 % (0.5-1.5); BG DEOXYHEMOGLOBIN 8.2 % (0.0-5.0); BG FRACTION INSPIRED OXYGEN 21; BG HCO3 ACT 20.1 mmol/L (22.0-26.0); BG METHEMOGLOBIN 0.3 % (0.0-1.5); BG OXYGEN SATURATION 91.7 % (92.0-98.5); BG OXYHEMOGLOBIN 90.9 % (94.0-97.0); BG PCO2 28.4 mmHg (35.0-45.0); BG PH 7.467 (7.350-7.450); BG PO2 60.9 mmHg (75.0-100.0); BG SAMPLE SITE RIGHT RADIAL; BG TOTAL HEMOGLOBIN 11.6 g/dL (12.0-18.0); BG VENT MODE ROOM AIR
[2016-10-31 15:25] LABS: T4 FREE 1.59 ng/dL (0.76-1.46)
[2016-10-31] MEDS ORDERED: HEPARIN SODIUM 1,000 UNIT/1ML VIAL IV NR (17:30)
[2016-10-31] MEDS: ATORVASTATIN CALCIUM 20MG TABLET PO SCH (21:05)
[2016-10-31] MEDS: CARVEDILOL 12.5MG TABLET PO SCH (21:06)
[2016-11-01] VITALS (8 sets, daily range): BP systolic 116–132; BP diastolic 60–86
[2016-11-01] MEDS: IPRATROPIUM/ALBUTEROL 0.5-3(2.5)MG/3ML NEB HHN SCH ×4 (01:42→19:48)
[2016-11-01] MEDS: HYDRALAZINE HCL 100MG TABLET PO SCH ×3 (06:12→22:55)
[2016-11-01 06:50] LABS: BASOPHILS % 0.6 % (0.0-2.0); EOSINOPHILS % 2.7 % (0.0-5.0); HEMATOCRIT. 33.1 % (36.0-48.0); HEMOGLOBIN. 11.1 g/dL (12.0-16.0); MEAN CORPUSCULAR HEMOGLOBIN 29.4 pg (28.0-32.0); MEAN CORPUSCULAR VOLUME 87.5 fL (81.0-99.0); MEAN PLATELET VOLUME 7.8 fl (7.4-10.4); MONOCYTES % 11.3 % (2.0-8.0); NEUTROPHILS % 60.4 % (40.0-76.0); PLATELET 185 x1000/uL (130-400); RED BLOOD CELL COUNT 3.78 mill/uL (4.2-5.4); RED CELL DISTRIBUTION WIDTH 17.2 % (11.6-14.6)
[2016-11-01] MEDS: BUDESONIDE 0.5MG/2ML NEB HHN SCH ×2 (08:15→19:50)
[2016-11-01] MEDS: OMEPRAZOLE 20MG CAPSULE EXTENDED RELEASE PO SCH ×2 (08:27→18:04)
[2016-11-01] MEDS: ASPIRIN 81MG EC TABLET PO SCH (08:27)
[2016-11-01] MEDS: SEVELAMER CARBONATE 800 MG TABLET PO SCH ×3 (08:27→18:04)
[2016-11-01] MEDS: AMLODIPINE 5MG TABLET PO SCH ×2 (08:27→21:03)
[2016-11-01] MEDS: ISOSORBIDE MONONITRATE 30MG TABLET SR 24HR PO SCH (08:27)
[2016-11-01] MEDS: CARVEDILOL 12.5MG TABLET PO SCH ×2 (08:27→21:03)
[2016-11-01] MEDS: LORAZEPAM 1MG TABLET PO PRN (09:55)
[2016-11-01] MEDS: ATORVASTATIN CALCIUM 20MG TABLET PO SCH (21:02)
[2016-11-02] VITALS: BP 127/80
[2016-11-02] MEDS: LORAZEPAM 1MG TABLET PO PRN (01:15)
[2016-11-02] MEDS: IPRATROPIUM/ALBUTEROL 0.5-3(2.5)MG/3ML NEB HHN SCH ×3 (01:33→14:24)
[2016-11-02 04:00] VITALS: BP 128/86
[2016-11-02 06:35] LABS: BASOPHILS % 0.6 % (0.0-2.0); EOSINOPHILS % 2.8 % (0.0-5.0); HEMATOCRIT. 31.1 % (36.0-48.0); HEMOGLOBIN. 10.4 g/dL (12.0-16.0); LYMPHOCYTES % 20.5 % (20.0-50.0); MEAN CORPUSCULAR HEMOGLOBIN 29.3 pg (28.0-32.0); MEAN CORPUSCULAR VOLUME 87.2 fL (81.0-99.0); MEAN PLATELET VOLUME 7.7 fl (7.4-10.4); MONOCYTES % 10.8 % (2.0-8.0); NEUTROPHILS % 65.3 % (40.0-76.0); PLATELET 192 x1000/uL (130-400); RED BLOOD CELL COUNT 3.56 mill/uL (4.2-5.4); RED CELL DISTRIBUTION WIDTH 17.1 % (11.6-14.6)
[2016-11-02] MEDS: HYDRALAZINE HCL 100MG TABLET PO SCH ×2 (06:43→14:42)
[2016-11-02] MEDS: OMEPRAZOLE 20MG CAPSULE EXTENDED RELEASE PO SCH (06:45)
[2016-11-02 08:00] VITALS: BP 130/74
[2016-11-02] MEDS: SEVELAMER CARBONATE 800 MG TABLET PO SCH ×2 (08:24→14:41)
[2016-11-02] MEDS: ASPIRIN 81MG EC TABLET PO SCH (08:25)
[2016-11-02] MEDS: AMLODIPINE 5MG TABLET PO SCH (08:25)
[2016-11-02] MEDS: ISOSORBIDE MONONITRATE 30MG TABLET SR 24HR PO SCH (08:25)
[2016-11-02] MEDS: CARVEDILOL 12.5MG TABLET PO SCH (08:26)
[2016-11-02] MEDS: BUDESONIDE 0.5MG/2ML NEB HHN SCH (08:59)
[2016-11-02 12:00] VITALS: BP 119/67
[2016-11-02 15:02] VITALS: BP 122/75
== END 2016-11-02 13:45 | disposition home health service (06) | DRG 291 ==
LOC: ER 07:12 → CANRESERV 14:06 → ENRESERV 14:06 → EDBEDREQ 15:03 → EDBEDREQSVC 15:03 → CANRESERV 15:30 → ENRESERV 15:30 → 5EST 16:10
PROVIDERS: ADMIT Internal Medicine; ATTEND Internal Medicine
PROC: 5A09357 Assistance with Respiratory Ventilation, Less than 24 Consecutive Hours, Continuous Positive Airway Pressure (ICD-10-PCS; 2016-10-29)
PROC: 5A1D60Z (ICD-10-PCS; principal; 2016-10-31)
DX: I13.2 Hypertensive heart and chronic kidney disease with heart failure and with stage 5 chronic kidney disease, or end stage renal disease (principal); I50.43 Acute on chronic combined systolic (congestive) and diastolic (congestive) heart failure; J96.00 Acute respiratory failure, unspecified whether with hypoxia or hypercapnia; N18.6 End stage renal disease; E11.22 Type 2 diabetes mellitus with diabetic chronic kidney disease; I27.2 Other secondary pulmonary hypertension; R65.10 Systemic inflammatory response syndrome (SIRS) of non-infectious origin without acute organ dysfunction; J44.1 Chronic obstructive pulmonary disease with (acute) exacerbation; E78.00 Pure hypercholesterolemia, unspecified; E05.90 Thyrotoxicosis, unspecified without thyrotoxic crisis or storm; E87.6 Hypokalemia; F41.1 Generalized anxiety disorder; I25.10 Atherosclerotic heart disease of native coronary artery without angina pectoris; I25.5 Ischemic cardiomyopathy; I34.0 Nonrheumatic mitral (valve) insufficiency; K21.9 Gastro-esophageal reflux disease without esophagitis; Z82.49 Family history of ischemic heart disease and other diseases of the circulatory system; Z85.3 Personal history of malignant neoplasm of breast; Z87.891 Personal history of nicotine dependence; Z99.2 Dependence on renal dialysis; Z88.5 Allergy status to narcotic agent; I25.2 Old myocardial infarction; Z88.8 Allergy status to other drugs, medicaments and biological substances; Z79.82 Long term (current) use of aspirin; Z79.899 Other long term (current) drug therapy
CPT/HCPCS: 36415; 36600; 71010; 80048; 82375; 82805; 82962; 83735; 83880; 84439; 84443; 84481; 84484; 85025; 85379; 85610; 87040; 93005; 93306; 93970; 94640; 94660; 94664; 99285; J1644; J3490; J7030; J7040; J7611; J7620; J7626; A4315

== ENCOUNTER 2016-11-08 20:04 | Inpatient (IN) | payer MEDICARE, MEDICAID ==
[~2016-11-08] VITALS: Ht 165.1 cm; Wt 66.2 kg
[2016-11-08] MEDS ORDERED: IPRATROPIUM/ALBUTEROL 0.5-3(2.5)MG/3ML NEB HHN ONE (20:45)
[2016-11-08 21:06] LABS: BASOPHILS % 0.7 % (0.0-2.0); HEMOGLOBIN. 11.5 g/dL (12.0-16.0); LYMPHOCYTES % 10.8 % (20.0-50.0); MEAN CORPUSCULAR HEMOGLOBIN 29.2 pg (28.0-32.0); MEAN CORPUSCULAR VOLUME 86.6 fL (81.0-99.0); MEAN PLATELET VOLUME 7.7 fl (7.4-10.4); MONOCYTES % 6.2 % (2.0-8.0); NEUTROPHILS % 81.3 % (40.0-76.0); PLATELET 239 x1000/uL (130-400); RED BLOOD CELL COUNT 3.93 mill/uL (4.2-5.4); RED CELL DISTRIBUTION WIDTH 16.5 % (11.6-14.6)
[2016-11-08 21:15] LABS: CARBON DIOXIDE 28 mEq/L (21-32); CHLORIDE 102 mEq/L (98-107)
[2016-11-08 22:50] LABS: CLARITY URINE CLEAR (CLEAR); COLOR URINE YELLOW (YELLOW); GLUCOSE URINE NEGATIVE (NEGATIVE); KETONES URINE NEGATIVE (NEGATIVE); LEUKOCYTE ESTERASE URINE NEGATIVE (NEGATIVE); NITRITE URINE NEGATIVE (NEGATIVE); OCCULT BLOOD URINE NEGATIVE (NEGATIVE); PH URINE 8.5 (4.5-8.0); PROTEIN URINE 2+ (NEGATIVE); SPECIFIC GRAVITY URINE 1.011 (1.005-1.030); UROBILINOGEN URINE 0.2 E.U./dL (0.2-1.0)
[2016-11-08 23:14] LABS: *AMPHETAMINES SCREEN URINE NEGATIVE (NEGATIVE); *BARBITURATES SCREEN URINE NEGATIVE (NEGATIVE); *BENZODIAZEPINES SCREEN URINE PRESUMTIVE POSITIVE (NEGATIVE); *COCAINE SCREEN URINE NEGATIVE (NEGATIVE); CANNABINOID URINE SCREEN NEGATIVE (NEGATIVE); METHADONE URINE SCREEN NEGATIVE (NEGATIVE); OPIATES URINE SCREEN NEGATIVE (NEGATIVE); PHENCYCLIDINE URINE SCREEN NEGATIVE (NEGATIVE)
[2016-11-08] MEDS ORDERED: MORPHINE SULFATE 2 MG/ML CPJ (NOT FOR IM USE) IV PRN (23:30)
[2016-11-08] MEDS ORDERED: DIPHENHYDRAMINE 50MG/ML VIAL IV PRN (23:30)
[2016-11-08] MEDS ORDERED: MAGNESIUM/ALUMINUM HYDROXIDE/SIMETHICONE 30ML UDC PO PRN (23:30)
[2016-11-08] MEDS ORDERED: NA PHOS,M-B/NA PHOS,DI-BA ENEMA 118ML PR PRN (23:30)
[2016-11-08] MEDS ORDERED: ONDANSETRON HCL 4MG/2ML VIAL IV PRN (23:30)
[2016-11-08] MEDS ORDERED: ACETAMINOPHEN 650MG/20.3ML UDC GT PRN (23:30)
[2016-11-08] MEDS ORDERED: GUAIFENESIN 200MG/10ML SUGAR FREE UDC PO PRN (23:30)
[2016-11-08] MEDS ORDERED: IPRATROPIUM/ALBUTEROL 0.5-3(2.5)MG/3ML NEB INH PRN (23:30)
[2016-11-08] MEDS ORDERED: ACETAMINOPHEN 650MG SUPP PR PRN (23:30)
[2016-11-08] MEDS ORDERED: HYDROCODONE/ACETAMINOPHEN 5/325MG TABLET PO PRN (23:30)
[2016-11-09] VITALS (11 sets, daily range): BP systolic 143–185; BP diastolic 81–116
[2016-11-09] MEDS ORDERED: ACETAMINOPHEN 325MG TABLET PO ONE
[2016-11-09] MEDS: METHYLPREDNISOLONE SOD SUCC 125 MG/2 ML VIAL IV SCH ×4 (05:42→23:59)
[2016-11-09] MEDS: SODIUM CHLORIDE 0.9% INJ 3ML FLUSH IVF SCH ×2 (05:42→21:00)
[2016-11-09] MEDS: CLONIDINE 0.1MG TABLET PO PRN ×2 (06:01→15:51)
[2016-11-09] MEDS: ENOXAPARIN 30MG/0.3ML SYR SUBCUT SCH (08:34)
[2016-11-09] MEDS: DOCUSATE SODIUM 100MG CAPSULE PO PRN (08:35)
[2016-11-09] MEDS: IPRATROPIUM/ALBUTEROL 0.5-3(2.5)MG/3ML NEB INH SCH ×3 (08:55→20:27)
[2016-11-09 09:00] LABS: HEMATOCRIT. 32.4 % (36.0-48.0); HEMOGLOBIN. 10.9 g/dL (12.0-16.0); MEAN CORPUSCULAR HEMOGLOBIN 29.1 pg (28.0-32.0); MEAN CORPUSCULAR VOLUME 86.8 fL (81.0-99.0); MEAN PLATELET VOLUME 8.1 fl (7.4-10.4); PLATELET 243 x1000/uL (130-400); RED BLOOD CELL COUNT 3.74 mill/uL (4.2-5.4); RED CELL DISTRIBUTION WIDTH 16.2 % (11.6-14.6)
[2016-11-09] MEDS ORDERED: ENOXAPARIN 40MG/0.4ML SYR SUBCUT SCH (09:00)
[2016-11-09 09:10] LABS: CARBON DIOXIDE 26 mEq/L (21-32); CHLORIDE 104 mEq/L (98-107); CREATINE KINASE 58 IU/L (26-192); HDL CHOLESTEROL 50 mg/dL (40-59); LDL CHOLESTEROL 98 mg/dL (5-100); TROPONIN I 0.11 ng/mL (0.00-0.04)
[2016-11-09 10:46] LABS: PLATELET ESTIMATE NORMAL
[2016-11-09] MEDS: ACETAMINOPHEN 325MG TABLET PO PRN ×2 (11:14→20:55)
[2016-11-09] MEDS: LORAZEPAM 2MG/ML CPJ IV PRN (15:54)
[2016-11-09] MEDS ORDERED: NON FORMULARY PATIENT HOME MED EA XX SCH ×2 (16:15→16:30)
[2016-11-09] MEDS ORDERED: FOLIC ACID/VITAMIN B COMP W-C TABLET PO SCH (16:30)
[2016-11-09] MEDS ORDERED: ASPIRIN 81MG TABLET PO SCH (16:30)
[2016-11-09] MEDS: SEVELAMER CARBONATE 800 MG TABLET PO SCH (16:53)
[2016-11-09] MEDS: ALPRAZOLAM 0.5 MG TABLET PO SCH (16:55)
[2016-11-09] MEDS: ISOSORBIDE MONONITRATE 30MG TABLET SR 24HR PO SCH (16:55)
[2016-11-09] MEDS: AMLODIPINE 5MG TABLET PO SCH (16:55)
[2016-11-09] MEDS: FAMOTIDINE 20MG TABLET PO SCH (16:56)
[2016-11-09] MEDS ORDERED: SEVELAMER CARBONATE 800 MG TABLET PO SCH (17:00)
[2016-11-09] MEDS ORDERED: CARVEDILOL 3.125 MG TABLET PO SCH (17:00)
[2016-11-09] MEDS ORDERED: FAMOTIDINE(NEO) 1MG/ML SUSP PO SCH (17:00)
[2016-11-09] MEDS ORDERED: HYDRALAZINE HCL 50MG TABLET PO SCH (17:00)
[2016-11-09 17:40] LABS: TROPONIN I 0.06 ng/mL (0.00-0.04)
[2016-11-09] MEDS: ANASTROZOLE 1 MG TABLET PO SCH (17:40)
[2016-11-09] MEDS: HYDRALAZINE HCL 50MG TABLET PO SCH (20:56)
[2016-11-09] MEDS: CARVEDILOL 3.125 MG TABLET PO SCH (20:59)
[2016-11-10] VITALS (22 sets, daily range): BP systolic 122–172; BP diastolic 70–102
[2016-11-10] MEDS: IPRATROPIUM/ALBUTEROL 0.5-3(2.5)MG/3ML NEB INH SCH ×3 (01:28→12:29)
[2016-11-10] MEDS: METHYLPREDNISOLONE SOD SUCC 125 MG/2 ML VIAL IV SCH ×3 (05:12→17:15)
[2016-11-10] MEDS: SODIUM CHLORIDE 0.9% INJ 3ML FLUSH IVF SCH ×3 (05:13→20:20)
[2016-11-10 05:44] LABS: HEMATOCRIT. 29.5 % (36.0-48.0); HEMOGLOBIN. 9.7 g/dL (12.0-16.0); MEAN CORPUSCULAR HEMOGLOBIN 28.7 pg (28.0-32.0); MEAN CORPUSCULAR VOLUME 87.3 fL (81.0-99.0); MEAN PLATELET VOLUME 8.2 fl (7.4-10.4); PLATELET 217 x1000/uL (130-400); RED BLOOD CELL COUNT 3.38 mill/uL (4.2-5.4); RED CELL DISTRIBUTION WIDTH 16.1 % (11.6-14.6)
[2016-11-10] MEDS: ACETAMINOPHEN 325MG TABLET PO PRN (06:02)
[2016-11-10] MEDS: FOLIC ACID/VITAMIN B COMP W-C TABLET PO SCH (08:40)
[2016-11-10] MEDS: SEVELAMER CARBONATE 800 MG TABLET PO SCH ×3 (08:40→17:15)
[2016-11-10] MEDS: FAMOTIDINE 20MG TABLET PO SCH (08:41)
[2016-11-10] MEDS: ASPIRIN 81MG EC TABLET PO SCH (08:41)
[2016-11-10] MEDS: ALPRAZOLAM 0.5 MG TABLET PO SCH ×2 (08:41→17:00)
[2016-11-10] MEDS: ENOXAPARIN 30MG/0.3ML SYR SUBCUT SCH (08:41)
[2016-11-10] MEDS: ANASTROZOLE 1 MG TABLET PO SCH (08:42)
[2016-11-10] MEDS: HYDRALAZINE HCL 50MG TABLET PO SCH ×2 (08:50→20:20)
[2016-11-10] MEDS: ISOSORBIDE MONONITRATE 30MG TABLET SR 24HR PO SCH (08:51)
[2016-11-10] MEDS: AMLODIPINE 5MG TABLET PO SCH (08:51)
[2016-11-10] MEDS: CARVEDILOL 3.125 MG TABLET PO SCH ×2 (08:51→20:20)
[2016-11-10] MEDS ORDERED: FOLIC ACID/VITAMIN B COMP W-C TABLET PO SCH (09:00)
[2016-11-10] MEDS ORDERED: ISOSORBIDE MONONITRATE 30MG TABLET SR 24HR PO SCH (09:00)
[2016-11-10] MEDS ORDERED: ANASTROZOLE 1 MG TABLET PO SCH (09:00)
[2016-11-10] MEDS ORDERED: AMLODIPINE 5MG TABLET PO SCH (09:00)
[2016-11-10 10:28] LABS: PLATELET ESTIMATE NORMAL
[2016-11-10] MEDS: LORAZEPAM 2MG/ML CPJ IV PRN (14:41)
[2016-11-10] MEDS ORDERED: NOREPINEPHRINE 16 MG in DEXT 5% WATER 484 ML IV PRN (15:15)
[2016-11-10] MEDS ORDERED: PROPOFOL 10MG/ML 100ML 100 ML IV PRN (15:15)
[2016-11-10 15:51] LABS: BG BASE EXCESS -3.7 mmol/L (-2.0-2.0); BG BILEVEL POS AIRWAY PRESSURE 15/5; BG CARBOXYHEMOGLOBIN 0.7 % (0.5-1.5); BG DEOXYHEMOGLOBIN 0.8 % (0.0-5.0); BG FRACTION INSPIRED OXYGEN 100; BG HCO3 ACT 23.9 mmol/L (22.0-26.0); BG METHEMOGLOBIN 0.2 % (0.0-1.5); BG OXYGEN SATURATION 99.2 % (92.0-98.5); BG OXYHEMOGLOBIN 98.3 % (94.0-97.0); BG PH 7.264 (7.350-7.450); BG PO2 208.8 mmHg (75.0-100.0); BG SAMPLE SITE RIGHT BRACHIAL; BG TOTAL HEMOGLOBIN 13.1 g/dL (12.0-18.0); BG VENT MODE MASK - BIPAP; BG VENT RATE 18 set
[2016-11-10 18:11] LABS: CREATINE KINASE MB FRACTION 5.7 ng/mL (0.5-3.6)
[2016-11-10 18:31] LABS: TROPONIN I 0.66 ng/mL (0.00-0.04)
[2016-11-10] MEDS: BUDESONIDE 0.5MG/2ML NEB HHN SCH (20:18)
[2016-11-10] MEDS: IPRATROPIUM/ALBUTEROL 0.5-3(2.5)MG/3ML NEB HHN SCH (20:18)
[2016-11-10] MEDS: IBUPROFEN 400MG TABLET PO PRN (21:23)
[2016-11-11] VITALS (11 sets, daily range): BP systolic 124–148; BP diastolic 71–92
[2016-11-11] MEDS: IPRATROPIUM/ALBUTEROL 0.5-3(2.5)MG/3ML NEB HHN SCH ×6 (00:33→20:19)
[2016-11-11] MEDS: METHYLPREDNISOLONE SOD SUCC 125 MG/2 ML VIAL IV SCH ×4 (00:52→17:25)
[2016-11-11] MEDS: LORAZEPAM 2MG/ML CPJ IV PRN (00:55)
[2016-11-11] MEDS: SODIUM CHLORIDE 0.9% INJ 3ML FLUSH IVF SCH ×3 (05:30→20:32)
[2016-11-11] MEDS: IPRATROPIUM/ALBUTEROL 0.5-3(2.5)MG/3ML NEB INH SCH ×3 (06:00→18:00)
[2016-11-11] MEDS: BUDESONIDE 0.5MG/2ML NEB HHN SCH ×2 (07:43→20:19)
[2016-11-11] MEDS: SEVELAMER CARBONATE 800 MG TABLET PO SCH ×4 (08:00→17:24)
[2016-11-11] MEDS: CARVEDILOL 3.125 MG TABLET PO SCH ×2 (08:23→20:31)
[2016-11-11] MEDS: AMLODIPINE 5MG TABLET PO SCH (08:23)
[2016-11-11] MEDS: HYDRALAZINE HCL 50MG TABLET PO SCH ×2 (08:23→20:31)
[2016-11-11] MEDS: ASPIRIN 81MG EC TABLET PO SCH (08:34)
[2016-11-11] MEDS: FAMOTIDINE 20MG TABLET PO SCH (08:35)
[2016-11-11] MEDS: ALPRAZOLAM 0.5 MG TABLET PO SCH ×2 (08:35→17:00)
[2016-11-11] MEDS: FOLIC ACID/VITAMIN B COMP W-C TABLET PO SCH (08:35)
[2016-11-11] MEDS: ANASTROZOLE 1 MG TABLET PO SCH (08:35)
[2016-11-11] MEDS: ISOSORBIDE MONONITRATE 30MG TABLET SR 24HR PO SCH (08:35)
[2016-11-11] MEDS: ENOXAPARIN 30MG/0.3ML SYR SUBCUT SCH (08:36)
[2016-11-11 10:15] LABS: HEMATOCRIT. 29.8 % (36.0-48.0); HEMOGLOBIN. 9.9 g/dL (12.0-16.0); MEAN CORPUSCULAR HEMOGLOBIN 29.3 pg (28.0-32.0); MEAN CORPUSCULAR VOLUME 88.1 fL (81.0-99.0); MEAN PLATELET VOLUME 8.8 fl (7.4-10.4); PLATELET 179 x1000/uL (130-400); RED BLOOD CELL COUNT 3.38 mill/uL (4.2-5.4); RED CELL DISTRIBUTION WIDTH 16.4 % (11.6-14.6)
[2016-11-11 10:38] LABS: CARBON DIOXIDE 22 mEq/L (21-32); CHLORIDE 99 mEq/L (98-107)
[2016-11-11 13:30] LABS: PLATELET ESTIMATE NORMAL
[2016-11-11 14:24] LABS: BG BASE EXCESS -1.3 mmol/L (-2.0-2.0); BG CARBOXYHEMOGLOBIN 0.9 % (0.5-1.5); BG DEOXYHEMOGLOBIN 6.4 % (0.0-5.0); BG METHEMOGLOBIN 0.3 % (0.0-1.5); BG OXYGEN SATURATION 93.5 % (92.0-98.5); BG OXYHEMOGLOBIN 92.4 % (94.0-97.0); BG PCO2 32.2 mmHg (35.0-45.0); BG PH 7.452 (7.350-7.450); BG PO2 68.6 mmHg (75.0-100.0); BG SAMPLE SITE RIGHT RADIAL; BG TOTAL HEMOGLOBIN 11.8 g/dL (12.0-18.0); BG VENT MODE NASAL CANNULA
[2016-11-11 15:31] LABS: T4 FREE 1.58 ng/dL (0.76-1.46)
[2016-11-11] MEDS: IBUPROFEN 400MG TABLET PO PRN (15:37)
[2016-11-11] MEDS: NITROGLYCERIN OINT 1GM/INCH UDPKT TD SCH (17:24)
[2016-11-11] MEDS: DOCUSATE SODIUM 100MG CAPSULE PO PRN (17:33)
[2016-11-11] MEDS ORDERED: NITROGLYCERIN OINT 1GM/INCH UDPKT TD SCH (18:00)
[2016-11-12] VITALS (14 sets, daily range): BP systolic 115–161; BP diastolic 72–108
[2016-11-12] MEDS: METHYLPREDNISOLONE SOD SUCC 125 MG/2 ML VIAL IV SCH ×4 (00:43→19:03)
[2016-11-12] MEDS: NITROGLYCERIN OINT 1GM/INCH UDPKT TD SCH ×4 (00:44→19:04)
[2016-11-12] MEDS: IPRATROPIUM/ALBUTEROL 0.5-3(2.5)MG/3ML NEB HHN SCH ×4 (00:44→21:56)
[2016-11-12] MEDS: LORAZEPAM 2MG/ML CPJ IV PRN ×2 (01:37→19:49)
[2016-11-12] MEDS: SODIUM CHLORIDE 0.9% INJ 3ML FLUSH IVF SCH (05:11)
[2016-11-12] MEDS: IPRATROPIUM/ALBUTEROL 0.5-3(2.5)MG/3ML NEB INH SCH ×8 (06:00→21:31)
[2016-11-12 07:07] LABS: HEMATOCRIT. 31.5 % (36.0-48.0); HEMOGLOBIN. 10.5 g/dL (12.0-16.0); MEAN CORPUSCULAR HEMOGLOBIN 29.2 pg (28.0-32.0); MEAN CORPUSCULAR VOLUME 87.4 fL (81.0-99.0); MEAN PLATELET VOLUME 8.3 fl (7.4-10.4); PLATELET 204 x1000/uL (130-400); RED CELL DISTRIBUTION WIDTH 16.3 % (11.6-14.6)
[2016-11-12 07:34] LABS: CHLORIDE 100 mEq/L (98-107)
[2016-11-12 08:00] LABS: CARBON DIOXIDE 22 mEq/L (21-32); HDL CHOLESTEROL 50 mg/dL (40-59); LDL CHOLESTEROL 114 mg/dL (5-100)
[2016-11-12] MEDS: FOLIC ACID/VITAMIN B COMP W-C TABLET PO SCH (08:29)
[2016-11-12] MEDS: SEVELAMER CARBONATE 800 MG TABLET PO SCH ×3 (08:29→19:03)
[2016-11-12] MEDS: FAMOTIDINE 20MG TABLET PO SCH (08:29)
[2016-11-12] MEDS: ALPRAZOLAM 0.5 MG TABLET PO SCH ×2 (08:29→19:02)
[2016-11-12] MEDS: CARVEDILOL 3.125 MG TABLET PO SCH ×2 (08:30→21:00)
[2016-11-12] MEDS: AMLODIPINE 5MG TABLET PO SCH (08:30)
[2016-11-12] MEDS: HYDRALAZINE HCL 50MG TABLET PO SCH ×2 (08:31→21:00)
[2016-11-12] MEDS: ANASTROZOLE 1 MG TABLET PO SCH (08:31)
[2016-11-12] MEDS: ASPIRIN 81MG EC TABLET PO SCH (08:36)
[2016-11-12] MEDS: BUDESONIDE 0.5MG/2ML NEB HHN SCH ×2 (08:38→21:56)
[2016-11-12] MEDS ORDERED: FENTANYL CITRATE/PF 50MCG/ML 2ML VIAL ONE (13:21)
[2016-11-12] MEDS ORDERED: MIDAZOLAM HCL 2 MG/2 ML VIAL ONE (13:21)
[2016-11-12] MEDS ORDERED: LIDOCAINE HCL 1% 20ML VIAL (Pyxis) INJ ONE (13:22)
[2016-11-12] MEDS ORDERED: IOHEXOL-300 100 ML BOTTLE ONE ×2 (13:22→15:02)
[2016-11-12] MEDS ORDERED: SODIUM CHLORIDE 0.9% 10ML VIAL ONE (15:02)
[2016-11-12 20:34] LABS: PLATELET ESTIMATE NORMAL
[2016-11-13] VITALS (13 sets, daily range): BP systolic 124–162; BP diastolic 30–98
[2016-11-13] MEDS: METHYLPREDNISOLONE SOD SUCC 125 MG/2 ML VIAL IV SCH ×4 (00:38→17:34)
[2016-11-13] MEDS: NITROGLYCERIN OINT 1GM/INCH UDPKT TD SCH ×4 (00:38→17:35)
[2016-11-13] MEDS: IPRATROPIUM/ALBUTEROL 0.5-3(2.5)MG/3ML NEB HHN SCH ×6 (01:19→21:18)
[2016-11-13] MEDS: SODIUM CHLORIDE 0.9% INJ 3ML FLUSH IVF SCH ×4 (04:58→22:52)
[2016-11-13 07:30] LABS: HEMATOCRIT. 33.3 % (36.0-48.0); HEMOGLOBIN. 11.3 g/dL (12.0-16.0); MEAN CORPUSCULAR HEMOGLOBIN 29.2 pg (28.0-32.0); MEAN CORPUSCULAR VOLUME 86.3 fL (81.0-99.0); PLATELET 223 x1000/uL (130-400); RED BLOOD CELL COUNT 3.86 mill/uL (4.2-5.4); RED CELL DISTRIBUTION WIDTH 16.2 % (11.6-14.6)
[2016-11-13] MEDS: SEVELAMER CARBONATE 800 MG TABLET PO SCH ×3 (07:49→17:34)
[2016-11-13] MEDS: BUDESONIDE 0.5MG/2ML NEB HHN SCH (08:00)
[2016-11-13] MEDS: DOCUSATE SODIUM 100MG CAPSULE PO PRN (09:25)
[2016-11-13] MEDS: ASPIRIN 81MG EC TABLET PO SCH (09:26)
[2016-11-13] MEDS: HYDRALAZINE HCL 50MG TABLET PO SCH ×2 (09:27→20:48)
[2016-11-13] MEDS: CARVEDILOL 3.125 MG TABLET PO SCH ×2 (09:27→20:48)
[2016-11-13] MEDS: FAMOTIDINE 20MG TABLET PO SCH (09:27)
[2016-11-13] MEDS: AMLODIPINE 5MG TABLET PO SCH (09:27)
[2016-11-13] MEDS: FOLIC ACID/VITAMIN B COMP W-C TABLET PO SCH (09:27)
[2016-11-13] MEDS: ALPRAZOLAM 0.5 MG TABLET PO SCH ×2 (09:27→22:51)
[2016-11-13] MEDS: ANASTROZOLE 1 MG TABLET PO SCH (12:26)
[2016-11-13 15:40] LABS: PLATELET ESTIMATE NORMAL
[2016-11-13] MEDS: ACETAMINOPHEN 325MG TABLET PO PRN (20:54)
[2016-11-14] VITALS (12 sets, daily range): BP systolic 118–157; BP diastolic 29–97
[2016-11-14] MEDS: METHYLPREDNISOLONE SOD SUCC 125 MG/2 ML VIAL IV SCH ×2 (00:13→06:21)
[2016-11-14] MEDS: NITROGLYCERIN OINT 1GM/INCH UDPKT TD SCH ×4 (00:13→18:14)
[2016-11-14] MEDS: IPRATROPIUM/ALBUTEROL 0.5-3(2.5)MG/3ML NEB HHN SCH ×5 (01:07→15:34)
[2016-11-14 06:17] LABS: HEMATOCRIT. 34.7 % (36.0-48.0); HEMOGLOBIN. 11.7 g/dL (12.0-16.0); MEAN CORPUSCULAR HEMOGLOBIN 29.5 pg (28.0-32.0); MEAN CORPUSCULAR VOLUME 87.2 fL (81.0-99.0); MEAN PLATELET VOLUME 8.7 fl (7.4-10.4); PLATELET 221 x1000/uL (130-400); RED BLOOD CELL COUNT 3.97 mill/uL (4.2-5.4); RED CELL DISTRIBUTION WIDTH 15.8 % (11.6-14.6)
[2016-11-14] MEDS: SODIUM CHLORIDE 0.9% INJ 3ML FLUSH IVF SCH ×2 (06:21→15:24)
[2016-11-14 06:40] LABS: CARBON DIOXIDE 22 mEq/L (21-32); CHLORIDE 93 mEq/L (98-107)
[2016-11-14 06:54] LABS: T4 FREE 1.51 ng/dL (0.76-1.46)
[2016-11-14] MEDS: ALPRAZOLAM 0.5 MG TABLET PO SCH ×2 (08:22→18:00)
[2016-11-14] MEDS: HYDRALAZINE HCL 50MG TABLET PO SCH (08:22)
[2016-11-14] MEDS: ANASTROZOLE 1 MG TABLET PO SCH (08:22)
[2016-11-14] MEDS: FOLIC ACID/VITAMIN B COMP W-C TABLET PO SCH (08:22)
[2016-11-14] MEDS: FAMOTIDINE 20MG TABLET PO SCH (08:22)
[2016-11-14] MEDS: ASPIRIN 81MG EC TABLET PO SCH (08:22)
[2016-11-14] MEDS: AMLODIPINE 5MG TABLET PO SCH (08:23)
[2016-11-14] MEDS: CARVEDILOL 3.125 MG TABLET PO SCH (08:23)
[2016-11-14] MEDS: SEVELAMER CARBONATE 800 MG TABLET PO SCH ×3 (10:01→15:18)
[2016-11-14 12:59] LABS: HEPATITIS B SURFACE ANTIGEN NEGATIVE
[2016-11-14] MEDS ORDERED: HEPARIN SODIUM 1,000 UNIT/1ML VIAL IV SCH (13:00)
[2016-11-14 13:15] LABS: PLATELET ESTIMATE NORMAL
[2016-11-14 13:27] LABS: HEPATITIS B CORE AB IGM NEGATIVE
[2016-11-14 13:28] LABS: HEPATITIS A AB IGM NEGATIVE (NEGATIVE)
[2016-11-14] MEDS: PREDNISONE 20MG TABLET PO SCH ×2 (15:17→18:00)
== END 2016-11-14 18:40 | disposition home or self-care (01) | DRG 280 ==
LOC: ER 20:04 → 5EST 11-09 00:15 → EDBEDREQ 11-09 00:31 → EDBEDREQSVC 11-09 00:59 → ENRESERV 11-09 01:23 → 3WST 11-12 15:00
PROVIDERS: ADMIT Family Medicine; ATTEND Family Medicine
PROC: 5A09357 Assistance with Respiratory Ventilation, Less than 24 Consecutive Hours, Continuous Positive Airway Pressure (ICD-10-PCS; 2016-11-09)
PROC: 5A1D60Z (ICD-10-PCS; 2016-11-10)
PROC: 4A023N7 Measurement of Cardiac Sampling and Pressure, Left Heart, Percutaneous Approach (ICD-10-PCS; principal; 2016-11-12)
PROC: B2111ZZ Fluoroscopy of Multiple Coronary Arteries using Low Osmolar Contrast (ICD-10-PCS; 2016-11-12)
DX: I21.4 Non-ST elevation (NSTEMI) myocardial infarction (principal); I50.43 Acute on chronic combined systolic (congestive) and diastolic (congestive) heart failure; J96.02 Acute respiratory failure with hypercapnia; E46 Unspecified protein-calorie malnutrition; N18.6 End stage renal disease; I31.3 Pericardial effusion (noninflammatory); I42.0 Dilated cardiomyopathy; E11.22 Type 2 diabetes mellitus with diabetic chronic kidney disease; J44.1 Chronic obstructive pulmonary disease with (acute) exacerbation; I13.2 Hypertensive heart and chronic kidney disease with heart failure and with stage 5 chronic kidney disease, or end stage renal disease; E78.00 Pure hypercholesterolemia, unspecified; E87.70 Fluid overload, unspecified; D63.8 Anemia in other chronic diseases classified elsewhere; E05.90 Thyrotoxicosis, unspecified without thyrotoxic crisis or storm; C50.912 Malignant neoplasm of unspecified site of left female breast; E11.65 Type 2 diabetes mellitus with hyperglycemia; F41.9 Anxiety disorder, unspecified; I25.10 Atherosclerotic heart disease of native coronary artery without angina pectoris; I25.5 Ischemic cardiomyopathy; I27.2 Other secondary pulmonary hypertension; K21.9 Gastro-esophageal reflux disease without esophagitis; Z79.82 Long term (current) use of aspirin; I25.2 Old myocardial infarction; Z87.891 Personal history of nicotine dependence; Z88.8 Allergy status to other drugs, medicaments and biological substances; Z68.24 Body mass index [BMI] 24.0-24.9, adult; Z99.2 Dependence on renal dialysis; Z88.6 Allergy status to analgesic agent; Z95.1 Presence of aortocoronary bypass graft; Z82.49 Family history of ischemic heart disease and other diseases of the circulatory system; Z80.3 Family history of malignant neoplasm of breast
CPT/HCPCS: 36415; 36600; 71010; 71260; 78580; 80048; 80053; 80061; 80305; 81001; 82375; 82550; 82553; 82805; 82962; 83520; 83615; 83735; 84439; 84443; 84478; 84481; 84484; 85025; 85379; 85651; 86705; 86709; 86803; 87340; 93005; 93306; 93458; 93970; 94640; 94660; 97116; 97162; 99285; A4216; C1769; C1887; C1893; J1644; J1650; J2060; J2250; J2930; J3010; J3490; J7030; J7060; J7512; J7620; J7626; Q9967